=== PATIENT | female | born 1935 | race Caucasian/White ===

== ENCOUNTER → 2017-11-23 | Outpatient (CLI) | payer OTHER ==
[~2017-11-23] MED LIST: ASPIRIN EC81 M1 PO; BENEFIBER98 GM; CALCIUM 500 +1 EAC4 PO; ENALAPRIL MALEA10 M1 OR; ENALAPRIL MALEA10 M1 PO; ETODOLAC500 MG PO; FISHOIL PO; FLAGYL500 MG PO; HYDROCODON-ACE1 EACH OR; HYTRIN 1 MG CAP1 MG OR; HYZAAR 50-12.51 EACH PO; IRON PO; K-DUR 20 MEQ T20 MEQ PO; LEVAQUIN 500 M500 M2 PO; MACROBID PO; MAG-OX 400 TAB400 M1 OR; METOCLOPRAMIDE10 MG PO; MIRALAX255 GM; MULTIVITAMINS PO; NEXIUM40 MG PO; NIASPAN PO; POTASSIUM20 OR; PRAVASTATIN SOD20 MG PO; RAPAFLO8 MG PO; SYNTHROID PO; SYNTHROID88 MCG PO; TUMS CHEWA500 MG/11 PO; VITAMIN D1000 UNI1 PO; VITAMIN D400 UNI1 PO
== END ==
LOC: RAD 01:17
DX: Z12.31 Encounter for screening mammogram for malignant neoplasm of breast (principal)

== ENCOUNTER → 2018-11-25 | Outpatient (CLI) | payer OTHER | LOC: RAD 01:20 | DX: Z12.31 Encounter for screening mammogram for malignant neoplasm of breast (principal) ==

== ENCOUNTER → 2019-11-27 | Outpatient (CLI) | payer OTHER | LOC: BC 08:35 → RAD 08:59 | DX: Z12.31 Encounter for screening mammogram for malignant neoplasm of breast (principal) ==

== ENCOUNTER → 2020-12-03 | Outpatient (CLI) | payer OTHER | LOC: BC 09:07 | PROVIDERS: ATTEND Internal Medicine | DX: Z12.31 Encounter for screening mammogram for malignant neoplasm of breast (principal) ==